=== PATIENT | male | born 1955 | race Two or more races ===

== ENCOUNTER 2016-07-27 16:56 | Emergency (ER) | payer SELFPAY ==
[2016-07-27] MEDS ORDERED: KETOROLAC 60 MG/2 ML VIAL IM STA (18:40)
[2016-07-27] MEDS ORDERED: ORPHENADRINE 30 MG/ML 2 ML VIAL IM STA (18:40)
--- NOTE | 2016-07-27 18:45 | ED ---
General Adult HPI - General Chief complaint: Upper Respiratory Infection Stated complaint: Fall 10 days ago, backpain thru to chest Time Seen by Provider: 07/27/16 18:30 Source: patient, RN notes reviewed Mode of arrival: ambulatory Limitations: no limitations - History of Present Illness Initial comments: 61 yo male presents to the ER with cc of left shoulder pain. Patient states he tripped and fell on landing onto both arms. Patient states that seems have pain to the upper left shoulder. Patient states he is also being treated for pneumonia his last use was today because it causes the pain in the left shoulder. Patient states he's been using [employer] Motrin. Patient states they have improved his symptoms. Patient states he is unable to do so because he thought that he would be healed by now. Patient states he has had no fever. Patient denies any chest pain is more in the left shoulder area. Patient states is not tender to touch but when it first happened was tender to movement but that has improved. Patient states is no other injuries in his head. Patient states doesn't radiate into the back.Patient denies any recent fever, chills, shortness of breath, chest pain, abdominal pain, nausea vomiting, numbness or tingling, dysuria or hematuria, constipation or diarrhea, headaches or visual changes, or any other current symptoms. - Related Data Home Medications Medication Instructions Recorded Confirmed amLODIPine [Norvasc] 5 mg PO BID 11/10/14 05/18/16 metFORMIN HCL [Glucophage] 500 mg PO BID 11/10/14 05/18/16 Benazepril HCl 20 mg PO DAILY 05/18/16 05/18/16 Omeprazole [PriLOSEC] 20 mg PO AC-BID 05/18/16 05/18/16 glipiZIDE XL [Glucotrol Xl] 10 mg PO BID 05/18/16 05/18/16 Previous Rx's Medication Instructions Recorded Ibuprofen [Motrin] 800 mg PO Q8HR PRN #30 tab 08/09/15 Acetaminophen with Codeine 1 tab PO Q4H PRN #20 tab 05/18/16 [Tylenol w/codeine #3] Naproxen [Naprosyn] 500 mg PO Q12HR #30 tab 05/18/16 traMADol HCl [Ultram] 50 mg PO Q4H PRN #20 tab 07/27/16 Allergies Allergy/AdvReac Type Severity Reaction Status Date / Time No Known Allergies Allergy Verified 07/27/16 18:20 Review of Systems ROS Statement: Those systems with pertinent positive or pertinent negative responses have been documented in the HPI. ROS Other: All systems not noted in ROS Statement are negative. Past Medical History Past Medical History: Diabetes Mellitus, GERD/Reflux, Hypertension Additional Past Medical History / Comment(s): Sleep Apnea History of Any Multi-Drug Resistant Organisms: None Reported Past Surgical History: Orthopedic Surgery Additional Past Surgical History / Comment(s): Carpal tunnel; knee surgery; cyst removed from neck Past Psychological History: No Psychological Hx Reported Smoking Status: Never smoker Past Alcohol Use History: Rare Past Drug Use History: Marijuana General Exam - General Exam Comments Initial Comments: General: The patient is awake and alert, in no distress, and does not appear acutely ill. Eye: Pupils are equal, round and reactive to light, extra-ocular movements are intact; there is normal conjunctiva bilaterally. No signs of icterus. Ears, nose, mouth and throat: There are moist mucous membranes Neck: The neck is supple, there is no tenderness. Cardiovascular: There is a regular rate and rhythm. No murmur, rub or gallop is appreciated. Respiratory: Lungs are clear to auscultation, respirations are non-labored, breath sounds are equal. No wheezes, stridor, rales, or rhonchi. Back: There is no tenderness to palpation in the midline. There is no obvious deformity. No rashes noted. Musculoskeletal: Patient does have minimal pain with ROM states it feels like a stretching to the left shoulder, Normal ROM, no tenderness, There is no pedal edema. There is no calf tenderness or swelling. Sensation intact. Pulses equal bilaterally 2+. Neurological: CN II-XII intact, There are no obvious motor or sensory deficits. Coordination appears grossly intact. Speech is normal. Skin: Skin is warm and dry and no rashes or lesions are noted. Psychiatric: Cooperative, appropriate mood & affect, normal judgment. Limitations: no limitations Course Vital Signs 07/27/16 17:30 Temperature 98.0 F Pulse Rate 85 Respiratory 20 Rate Blood Pressure 145/84 O2 Sat by Pulse 98 Oximetry Medical Decision Making - Medical Decision Making 61-year-old male presents to emergency room chief complaint of left shoulder pain after a fall. At this time patient's x-rays were reviewed and negative pneumonia seems to have resolved. We discussed patient mostly of the left shoulder sprain that is being aggravated by the cough as well as some costochondritis. We discussed using medication as prescribed. Discussed. We discussed follow-up with his doctor and return parameters. Patient stated that he understood and all his questions. He will be discharged. - Radiology Data Radiology results: report reviewed, image reviewed Disposition Clinical Impression: Sprain of left shoulder, Costochondritis, acute Disposition: HOME SELF-CARE Condition: Stable Instructions: Costochondritis (ED), Shoulder Sprain (ED) Additional Instructions: Please use medication as discussed. Please follow up with family doctor if symptoms have not improved over the next two days. Please return to the emergency room if your symptoms increase or worsen or for any other concerns. Prescriptions: traMADol HCl [Ultram] 50 mg PO Q4H PRN #20 tab PRN Reason: Pain Referrals: Ric Loomis MD [Primary Care Provider] - 1-2 days Time of Disposition: 19:02
--- NOTE | 2016-07-27 18:53 | XR ---
EXAMINATION TYPE: XR chest 2V DATE OF EXAM: 07/27/2016 6:49 PM COMPARISON: 07/17/2016 HISTORY: Pneumonia. Cough. TECHNIQUE: Frontal and lateral views of the chest are obtained. FINDINGS: Heart and mediastinum are normal. Lungs are clear. Costophrenic angles are clear. There ar e no hilar masses. The bony thorax is intact. IMPRESSION: Normal chest. No change.
--- NOTE | 2016-07-27 18:54 | XR ---
EXAMINATION TYPE: XR shoulder complete LT DATE OF EXAM: 07/27/2016 6:48 PM COMPARISON: NONE HISTORY: Shoulder pain TECHNIQUE: 3 views FINDINGS: I see no fracture nor dislocation. Glenohumeral joint is intact. AC joint is intact. IMPRESSION: Negative left shoulder exam.
[2016-07-27 19:24] VITALS: BP 166/86; PULSE 82; RESP 18; TEMP 98.4
== END 2016-07-27 19:24 | disposition home or self-care (01) ==
LOC: EC 16:56
DX: S43.402A Unspecified sprain of left shoulder joint, initial encounter (principal); M94.0 Chondrocostal junction syndrome [Tietze]; E11.9 Type 2 diabetes mellitus without complications; I10 Essential (primary) hypertension; K21.9 Gastro-esophageal reflux disease without esophagitis; Z79.84 Long term (current) use of oral hypoglycemic drugs; Z79.899 Other long term (current) drug therapy; W01.0XXA Fall on same level from slipping, tripping and stumbling without subsequent striking against object, initial encounter
CPT/HCPCS: 71020; 73030; 99284; 96372 ×2; J2360; J1885

== ENCOUNTER → 2017-02-03 | Outpatient (CLI) | payer BC ==
[2017-02-03 12:02] LABS: Basophils % (A) 1 %; CH 30.6; CHCM 36.2; Eosinophils % (A) 1 %; HCT 42.9 % (39.0-53.0); HGB 15.7 gm/dL (13.0-17.5); Luc # (Auto) 0.19; Luc % (Auto) 4; Lymphocytes # (A) 1.1 k/uL (1.0-4.8); Lymphocytes % (A) 23 %; MCH 31.1 pg (25.0-35.0); MCHC 36.6 g/dL (31.0-37.0); MCV 84.9 fL (80.0-100.0); Mean Platelet Volume 8.3; Monocytes # (A) 0.3 k/uL (0-1.0); Monocytes % (A) 6 %; Neutrophils # (A) 3.2 k/uL (1.3-7.7); Neutrophils % (A) 65 %; RBC 5.06 m/uL (4.30-5.90); WBC 4.9 k/uL (3.8-10.6)
[2017-02-03 13:44] LABS: ALT 44 U/L (21-72); AST 26 U/L (17-59); Alkaline Phosphatase 108 U/L (38-126); Anion Gap 9 mmol/L; Blood Urea Nitrogen 20 mg/dL (9-20); Calcium 9.5 mg/dL (8.4-10.2); Carbon Dioxide 27 mmol/L (22-30); Chloride 101 mmol/L (98-107); Cholesterol 169 mg/dL (<200); Glucose 249 mg/dL (74-99); HDL Cholesterol 36 mg/dL (40-60); Non-African American GFR(MDRD) >60 (>60 ml/min/1.73 sqM); Potassium 4.4 mmol/L (3.5-5.1); Sodium 137 mmol/L (137-145); Total Bilirubin 2.5 mg/dL (0.2-1.3); Total Protein 7.3 g/dL (6.3-8.2)
[2017-02-03 14:01] LABS: Hemoglobin A1C 9.1 % (4.2-6.1)
== END | disposition home or self-care (01) ==
LOC: LABWHC1 11:29
PROVIDERS: ATTEND Internal Medicine
DX: E78.5 Hyperlipidemia, unspecified (principal); E11.9 Type 2 diabetes mellitus without complications; I10 Essential (primary) hypertension
CPT/HCPCS: 36415; 80053; 80061; 83036; 84439; 84443; 85025